=== PATIENT | female | born 2005 | race African-American/Black ===

== ENCOUNTER → 2024-12-11 | Outpatient (CLI) | payer OTHER | LOC: M LAB 14:32 | PROVIDERS: ATTEND Nurse Practitioner Women's Health | DX: O36.80X0 Pregnancy with inconclusive fetal viability, not applicable or unspecified (principal) ==

== ENCOUNTER 2024-12-26 04:50 | Emergency (ER) | payer OTHER ==
[2024-12-26] MEDS: KETOROLAC 60 MG/2 ML VIAL IM ONE (07:26)
[2024-12-26] MEDS: ONDANSETRON 4MG 2ML VIAL IV ONE (09:30)
[2024-12-26] MEDS: MORPHINE 2 MG/ML 1 ML VIAL IV ONE (09:30)
[2024-12-26] MEDS ORDERED: METH-1164 PO (13:45)
[2024-12-26] MEDS ORDERED: HYDR-3713 PO (13:49)
[2024-12-26] MEDS ORDERED: MEDR4PAK PO (13:56)
[2024-12-26 14:15] VITALS: BP 108/59; TEMP 98.8; O2SAT 100
== END 2024-12-26 14:21 | disposition home or self-care (01) ==
LOC: M ED 04:50
DX: M51.27 Other intervertebral disc displacement, lumbosacral region (principal); Z79.1 Long term (current) use of non-steroidal anti-inflammatories (NSAID); Z79.899 Other long term (current) drug therapy
CPT/HCPCS: 72100; 72131; 72148; 84702; 96372; 96374; 96375; 99284; J1885; J2405; J2919; J3360